=== PATIENT | male | born 2000 | race African-American/Black ===

== ENCOUNTER 2022-12-15 10:35 | Emergency (ER) | payer MEDICAID ==
[~2022-12-15] VITALS: Ht 185.4 cm; Wt 82.0 kg
[2022-12-15 10:38] VITALS: BP 134/67; PULSE 60; RESP 18; TEMP 98.1; O2SAT 100
[2022-12-15] MEDS ORDERED: HYDROCODONE/ACETAMINOPHEN 5/325MG TABLET PO ONE (10:45)
[2022-12-15] MEDS ORDERED: TRAM50TA3 MT (11:51)
== END 2022-12-15 12:12 | disposition home or self-care (01) ==
LOC: ER 10:35
DX: S89.92XA Unspecified injury of left lower leg, initial encounter (principal); W18.39XA Other fall on same level, initial encounter; Y93.89 Activity, other specified; Y92.89 Other specified places as the place of occurrence of the external cause; Y99.8 Other external cause status
CPT/HCPCS: 73562; 99283; Z7610; L1830

== ENCOUNTER 2023-04-28 16:56 | Emergency (ER) | payer MEDICAID ==
[~2023-04-28] VITALS: Ht 182.9 cm; Wt 83.0 kg
[~2023-04-28 16:56] MED LIST: TRAM50TA3 MT
[2023-04-28 17:04] VITALS: O2SAT 99
[2023-04-28] MEDS ORDERED: IBUP-2030 MT (22:05)
[2023-04-28 22:28] VITALS: BP 124/84; PULSE 71; RESP 20; TEMP 98.2
== END 2023-04-28 22:29 | disposition home or self-care (01) ==
LOC: ER 16:56
DX: R68.89 Other general symptoms and signs (principal); R20.2 Paresthesia of skin
CPT/HCPCS: 72070; 99283

== ENCOUNTER 2024-02-03 09:14 | Emergency (ER) | payer MEDICAID ==
[~2024-02-03] VITALS: Ht 188 cm; Wt 90.7 kg
[~2024-02-03 09:14] MED LIST changes: +IBUP-2030 MT
[2024-02-03 09:16] VITALS: TEMP 97.7; O2SAT 100
[2024-02-03 11:51] VITALS: BP 114/75; PULSE 59; RESP 16
[2024-02-03] MEDS: KETOROLAC 30MG/ML VIAL IM ONE (11:51)
[2024-02-04] MEDS ORDERED: IBUP-1525 MT (12:00)
[2024-02-04] MEDS ORDERED: TOPUD MT (12:00)
== END 2024-02-03 12:21 | disposition left against medical advice (07) ==
LOC: ER 09:14
DX: M79.605 Pain in left leg (principal); Z98.890 Other specified postprocedural states
CPT/HCPCS: 96372; 99283; J1885; Z7610

== ENCOUNTER 2024-02-04 09:08 | Emergency (ER) | payer MEDICAID ==
[~2024-02-04] VITALS: Ht 188 cm; Wt 95.0 kg
[2024-02-04 09:13] VITALS: O2SAT 99
[2024-02-04] MEDS ORDERED: IBUP-1525 MT (12:00)
[2024-02-04] MEDS ORDERED: TOPUD MT (12:00)
[2024-02-04] MEDS: ACETAMINOPHEN 325MG TABLET PO ONE (12:08)
[2024-02-04] MEDS: IBUPROFEN 800MG TABLET PO ONE (12:08)
[2024-02-04 12:10] VITALS: BP 134/71; PULSE 68; RESP 16; TEMP 37.11408; O2SAT 99
== END 2024-02-04 13:49 | disposition home or self-care (01) ==
LOC: ER 09:08
DX: M25.562 Pain in left knee (principal); Z79.899 Other long term (current) drug therapy
CPT/HCPCS: 73564; 99283